=== PATIENT | male | born 1945 | race Caucasian/White ===

== ENCOUNTER 2022-10-30 11:10 | Emergency (ER) | payer MEDICARE, OTHER ==
[~2022-10-30] VITALS: Ht 152.4 cm; Wt 63.5 kg
[2022-10-30] MEDS ORDERED: IV NS 0.9% 1,000 ML IV ONE (12:00)
[2022-10-30] MEDS ORDERED: EMOL177L7 TP (12:01)
[2022-10-30 12:18] LABS: BASOPHILS % (AUTO) 0.9 % (0.0-2.0); EOSINOPHILS # (AUTO) 0.1 K/uL (0.0-0.7); EOSINOPHILS % (AUTO) 1.5 % (0.0-6.0); HEMATOCRIT 34 % (39-51); HEMOGLOBIN 11.6 g/dL (13.5-17.5); LYMPHOCYTES % (AUTO) 21.2 % (20.0-44.0); MEAN CORPUSCULAR HEMOGLOBIN 32 PG (26.0-33.0); MEAN CORPUSCULAR HGB CONC 34 g/dl (31.0-36.0); MEAN CORPUSCULAR VOLUME 93 fL (80-96); MONOCYTES # (AUTO) 0.5 K/uL (0.1-1.30); MONOCYTES % (AUTO) 9.3 % (2.0-12.0); NEUTROPHILS # (AUTO) 3.3 K/uL (1.8-8.9); NEUTROPHILS % (AUTO) 67.1 % (43.0-81.0); PLATELET COUNT (AUTO) 248 K/uL (150-450); RED BLOOD CELL COUNT(AUTO) 3.64 MIL/uL (4.5-6.0); RED CELL DISTRIBUTION WIDTH 13.8 % (11.5-15.0); WHITE BLOOD COUNT (AUTO) 4.8 K/uL (4.3-11.0)
[2022-10-30 12:40] LABS: ALANINE AMINOTRANSFERASE 13 U/L (12-78); ALBUMIN 3.5 g/dL (3.4-5.0); ALKALINE PHOSPHATASE 77 U/L (46-116); ASPARTATE AMINOTRANSFERASE 19 U/L (15-37); BILIRUBIN,TOTAL 0.4 mg/dL (0.2-1.0); CARBON DIOXIDE 27 mmol/L (21-32); CHLORIDE 105 mmol/L (98-107); CREATININE 0.9 mg/dL (0.6-1.3); GLUCOSE 108 mg/dL (74-106); POTASSIUM 4.2 mmol/L (3.5-5.1); SODIUM SERUM 139 mmol/L (136-145); TOTAL PROTEIN, SERUM 6.8 g/dL (6.4-8.2); UREA NITROGEN, BLOOD 20 mg/dL (7-18)
[2022-10-30 14:54] VITALS: BP 135/61; TEMP 98; O2SAT 100
== END 2022-10-30 13:45 | disposition home or self-care (01) ==
LOC: ER 12:15
DX: L85.3 Xerosis cutis (principal); L29.9 Pruritus, unspecified; G20 Parkinson's disease
CPT/HCPCS: 99283; 96360; 85025; 36415; 80053; J7030

== ENCOUNTER 2024-06-21 11:19 | Emergency (ER) | payer MEDICARE, OTHER ==
[~2024-06-21] VITALS: Ht 162.6 cm; Wt 67.6 kg
[~2024-06-21 11:19] MED LIST: EMOL177L7 TP
[2024-06-21] MEDS ORDERED: ACETAMINOPHEN ES 500 MG TABLET ONE (11:33)
[2024-06-21] MEDS: ACETAMINOPHEN ES 500 MG TABLET PO ONE (11:36)
[2024-06-21] MEDS ORDERED: IBUP-1955 PO (12:53)
[2024-06-21] MEDS ORDERED: CARB1TAB40 PO (12:53)
[2024-06-21] MEDS ORDERED: DOCU100C36 PO (12:53)
[2024-06-21] MEDS ORDERED: CARB1TAB21 PO (12:53)
[2024-06-21] MEDS ORDERED: ESCI10TA PO (12:53)
[2024-06-21] MEDS ORDERED: PANT40TA49 PO (12:53)
[2024-06-21] MEDS ORDERED: MAGN400O6 PO (12:53)
[2024-06-21] MEDS ORDERED: ACET325T53 PO (12:53)
[2024-06-21] MEDS ORDERED: ONDA-97 PO (12:53)
[2024-06-21] MEDS ORDERED: DIPH-873 PO (12:53)
[2024-06-21 13:00] VITALS: BP 105/61; TEMP 98.6; O2SAT 97
== END 2024-06-21 13:49 ==
LOC: ER 11:23
DX: M79.671 Pain in right foot (principal); F32.A Depression, unspecified; G20.A1 Parkinson's disease without dyskinesia, without mention of fluctuations; Z79.899 Other long term (current) drug therapy
CPT/HCPCS: 73610-TC; 73630-TC; 93971-TC